=== PATIENT | male | born 1970 | race Caucasian/White ===

== ENCOUNTER 2019-12-11 09:53 | Inpatient (IN) | payer OTHER ==
[2019-12-11] MEDS ORDERED: PROMETHAZINE INJ 25 MG/ML AMP ONE (11:14)
[2019-12-11] MEDS ORDERED: MORPHINE 4 MG/ML SYR ONE (11:14)
[2019-12-11 11:27] LABS: Absolute Lymphocytes (CBC) 0.8 K/uL (0.7-4.9); Basophils % 0.4 % (0-1.3); Hematocrit 48.3 % (39.6-49.0); Lymphocytes % 4.2 % (15.3-44.8); MPV 8.3 fL (7.6-11.3); RBC Red Blood Cell Count 5.47 M/uL (4.33-5.43)
[2019-12-11 11:45] LABS: Albumin 4.1 g/dL (3.4-5.0); Bilirubin Total 0.6 mg/dL (0.2-1.0); Potassium 3.7 mmol/L (3.5-5.1); Protein, Total 8.3 g/dL (6.4-8.2)
[2019-12-11] MEDS ORDERED: VANCOMYCIN 2 GM in NA CHLORIDE 0.9% 500 ML IVPB ONE (12:00)
--- NOTE | 2019-12-11 12:03 | RAD REPORT ---
EXAM DESCRIPTION: US - Extremity Venous Uni Ltd - 12/11/2019 11:56 am CLINICAL HISTORY: SWELLING Leg swelling and edema. COMPARISON: EXT VENOUS UNI LTD dated 04/12/2014 FINDINGS: Left lower extremity venous system was interrogated with Doppler technique. Normal flow, c ompressibility and augmentation was noted. There is no DVT present. IMPRESSION: No evidence of left lower extremity deep venous thrombosis.
--- NOTE | 2019-12-11 12:10 | EDPHYS ---
Physician Documentation [facility] Name: Himanshu Caceres Age: 49 yrs Sex: Male : 1970 Arrival Date: 12/11/2019 Time: 09:56 Bed 6 Private MD: ED Physician Aroldo Woods HPI: 12/11 10:58 This 49 yrs old Male presents to ER via Ambulatory with complaints of Leg jmm Cellulitis. 10:58 The patient presents with swelling. The complaints affect the left calf. Onset: The jmm symptoms/episode began/occurred this morning. Modifying factors: The symptoms are alleviated by nothing. the symptoms are aggravated by movement. Associated signs and symptoms: Pertinent positives: fever, swelling. This is a 49 year old male with a history of htn, lymphedema that presents to the ED with complaints of left leg swelling and pain. Patient has had multiple episodes in the same area. . Historical: - Allergies: 10:42 PENICILLINS; iw - Home Meds: 10:42 atenolol 100 mg Oral tab 1 tab once daily [Active]; Lasix 20 mg Oral tab 1 tab once iw daily [Active]; - PMHx: 10:42 Hypertension; lymphedema; iw - PSHx: 10:42 Knee surgery; iw - Immunization history:: Adult Immunizations not up to date. - Coronavirus screen:: The patient has NOT traveled to [place], [place], or [place] in the past 14 days. Proceed with normal triage process as indicated. - Social history:: Smoking status: Patient/guardian denies using tobacco, the patient reports quitting approximately 20 years ago. - Ebola Screening: : Patient negative for fever greater than or equal to 101.5 degrees Fahrenheit, and additional compatible Ebola Virus Disease symptoms Patient denies exposure to infectious person Patient denies travel to an Ebola-affected area in the 21 days before illness onset No symptoms or risks identified at this time. ROS: 10:58 Constitutional: Negative for fever, chills, and weight loss, Cardiovascular: Negative jmm for chest pain, palpitations, and edema, Respiratory: Negative for shortness of breath, cough, wheezing, and pleuritic chest pain, Abdomen/GI: Negative for abdominal pain, nausea, vomiting, diarrhea, and constipation. 10:58 MS/extremity: Positive for erythema, swelling. 10:58 Skin: Positive for erythema. 10:58 All other systems are negative. Exam: 10:58 Constitutional: This is a well developed, well nourished patient who is awake, alert, jmm and in no acute distress. Head/Face: atraumatic. Eyes: EOMI, no conjunctival erythema appreciated ENT: Moist Mucus Membranes Neck: Trachea midline, Supple Chest/axilla: Normal chest wall appearance and motion. Cardiovascular: Regular rate and rhythm. No edema appreciated Respiratory: Normal respirations, no respiratory distress appreciated Abdomen/GI: Non distended, soft Back: Normal ROM 10:58 Musculoskeletal/extremity: FROM appreciated to the left lower leg, compartments are soft, full dorsalis pedis pulse, NVI. 10:58 Skin: erythema and induration appreciated to the left lower leg, TTP. 10:58 Neuro: Orientation: is normal, Mentation: is normal, Memory: is normal. 10:58 Psych: Behavior/mood is pleasant, cooperative. Vital Signs: 10:38 BP 160 / 78; Pulse 86; Resp 20; Temp 100.8; Pulse Ox 96% on R/A; Weight 157.49 kg; iw Height 6 ft. 1 in. (185.42 cm); Pain 10/10; 11:30 BP 115 / 51; Pulse 87; Resp 16; Pulse Ox 97% on R/A; tw2 12:38 BP 115 / 51; Pulse 90; Resp 17; Pulse Ox 98% on R/A; Pain 10/10; tw2 13:17 Temp 99.3(O); tw2 13:18 BP 119 / 60; Pulse 86; Resp 17; Pulse Ox 95% on R/A; tw2 14:00 BP 96 / 42; Pulse 87; Resp 18; Pulse Ox 95% ; sv 10:38 Body Mass Index 45.81 (157.49 kg, 185.42 cm) iw MDM: 10:51 Patient medically screened. [facility] 12:07 Data reviewed: vital signs, nurses notes. Counseling: I had a detailed discussion with lui the patient and/or guardian regarding: the historical points, exam findings, and any diagnostic results supporting the discharge/admit diagnosis, lab results, the need for further work-up and treatment in the hospital. ED course: I discussed the patient with Dr. Rooney whom accepted admission. . 12/11 10:52 Order name: CBC with Diff; Complete Time: 12:31 [facility] 12/11 10:52 Order name: CMP; Complete Time: 11:45 [facility] 12/11 10:52 Order name: Lactate; Complete Time: 11:45 [facility] 12/11 10:52 Order name: Procalcitonin; Complete Time: 12:16 [facility] 12/11 10:52 Order name: Blood Culture Adult (2) [facility] 12/11 12:24 Order name: Manual Differential; Complete Time: 12:31 [facility] 12/11 11:24 Order name: US Extremity Venous Unilateral Ltd; Complete Time: 12:16 [facility] 12/11 10:52 Order name: Saline Lock; Complete Time: 11:11 [facility] Administered Medications: 11:20 Drug: Promethazine 12.5 mg Route: IVP; Site: right antecubital; tw2 12:35 Follow up: Response: No adverse reaction tw2 11:23 Drug: morphine 4 mg Route: IVP; Site: right antecubital; tw2 12:35 Follow up: Response: No adverse reaction; Pain is unchanged, physician notified; RASS: tw2 Alert and Calm (0) 12:07 CANCELLED (30 0ml/kg used): NS 0.9% 1000 ml IV at 1 bolus Per protocol; 1000 mL bolus [facility] 12:30 Drug: vancoMYCIN 1 grams Route: IVPB; Infused Over: 2 hrs; Site: right antecubital; tw2 13:50 Follow up: IV Status: Infusion continued upon admission tw2 12:30 Drug: NS 0.9% (30 ml/kg) 30 ml/kg Route: IV; Rate: bolus; Site: right antecubital; tw2 13:50 Follow up: IV Status: Infusion continued upon admission; IV Intake: 2000ml tw2 12:30 Drug: Tylenol 1000 mg Route: PO; tw2 13:50 Follow up: Response: No adverse reaction; Temperature is decreased tw2 13:13 Drug: [place] 10 mg-325 mg 1 tabs Route: PO; tw2 13:53 Follow up: Response: No adverse reaction; Pain is decreased; RASS: Alert and Calm (0) tw2 Disposition: 18:17 Co-signature as Attending Physician, Aroldo Woods MD. ma2 Disposition: 12/11/19 12:08 Hospitalization ordered by Shruthi Rooney for Inpatient Admission. Preliminary diagnosis are Cellulitis of left lower limb, Sepsis. - Bed requested for Telemetry/MedSurg (Inpatient). - Status is Inpatient Admission. tw2 - Condition is Stable. - Problem is an acute exacerbation. - Symptoms have improved. Signatures: Dispatcher [employer] EDMS Ej Borja PA PA Liya Vyas, RN RN iw Perla Mckenzie RN RN tw2 Joshua Kimbrough RN RN ja1 Aroldo Woods MD MD tx2 Corrections: (The following items were deleted from the chart) 12:07 12:01 NS 0.9% 1000 ml IV at 1 bolus Per protocol; 1000 mL bolus ordered. [facility] 13:38 12:08 Hospitalization Ordered by Shruthi Rooney MD for Inpatient Admission. Preliminary ja1 diagnosis is Cellulitis of left lower limb; Sepsis. Bed requested for Telemetry/MedSurg (Inpatient). Status is Inpatient Admission. Condition is Stable. Problem is an acute exacerbation. Symptoms have improved. [facility] 14:19 13:38 12/11/2019 12:08 Hospitalization Ordered by Shruthi Rooney MD for Inpatient tw2 Admission. Preliminary diagnosis is Cellulitis of left lower limb; Sepsis. Bed requested for Telemetry/MedSurg (Inpatient). Status is Inpatient Admission. Condition is Stable. Problem is an acute exacerbation. Symptoms have improved. ja1
--- NOTE | 2019-12-11 12:10 | ER ---
Nurse's Notes [facility] Name: Himanshu Caceres Age: 49 yrs Sex: Male : 1970 Arrival Date: 12/11/2019 Time: 09:56 Bed 6 Private MD: Diagnosis: Cellulitis of left lower limb;Sepsis Presentation: 12/11 10:38 Presenting complaint: Patient states: cellulitis to left leg, flared up this morning , iw has hx of cellulitis and lymphedema in leg. Transition of care: patient was not received from another setting of care. Onset of symptoms was December 10, 2019. Risk Assessment: Do you want to hurt yourself or someone else? Patient reports no desire to harm self or others. Initial Sepsis Screen: Does the patient meet any 2 criteria? No. Patient's initial sepsis screen is negative. Does the patient have a suspected source of infection? No. Patient's initial sepsis screen is negative. Care prior to arrival: None. 10:38 Method Of Arrival: Ambulatory iw 10:38 Acuity: CLAUDETTE 3 iw Historical: - Allergies: 10:42 PENICILLINS; iw - Home Meds: 10:42 atenolol 100 mg Oral tab 1 tab once daily [Active]; Lasix 20 mg Oral tab 1 tab once iw daily [Active]; - PMHx: 10:42 Hypertension; lymphedema; iw - PSHx: 10:42 Knee surgery; iw - Immunization history:: Adult Immunizations not up to date. - Coronavirus screen:: The patient has NOT traveled to [place], [place], or [place] in the past 14 days. Proceed with normal triage process as indicated. - Social history:: Smoking status: Patient/guardian denies using tobacco, the patient reports quitting approximately 20 years ago. - Ebola Screening: : Patient negative for fever greater than or equal to 101.5 degrees Fahrenheit, and additional compatible Ebola Virus Disease symptoms Patient denies exposure to infectious person Patient denies travel to an Ebola-affected area in the 21 days before illness onset No symptoms or risks identified at this time. Screenin:06 Abuse screen: Denies threats or abuse. Nutritional screening: No deficits noted. tw2 Tuberculosis screening: No symptoms or risk factors identified. Fall Risk None identified. Assessment: 11:00 Reassessment: Patient appears in no apparent distress at this time. Patient and/or tw2 family updated on plan of care and expected duration. Pain level reassessed. Patient is alert, oriented x 3, equal unlabored respirations, skin warm/dry/pink. Patient states symptoms have not improved. General: Appears uncomfortable, obese, Behavior is calm, cooperative, agitated. Pain: Complains of pain in left calf. Neuro: Level of Consciousness is awake, alert, obeys commands, Oriented to person, place, time, situation. Cardiovascular: Heart tones S1 S2 Patient's skin is warm and dry. Respiratory: Airway is patent Respiratory effort is even, unlabored, Respiratory pattern is regular, symmetrical, Breath sounds are clear bilaterally. GI: No signs and/or symptoms were reported involving the gastrointestinal system. Abdomen is round obese, Bowel sounds present X 4 quads. : No signs and/or symptoms were reported regarding the genitourinary system. EENT: No signs and/or symptoms were reported regarding the EENT system. Derm: redness and swelling noted to LEFT calf, right calf is swollen as well. pt reports increased pain and swelling. Musculoskeletal: Range of motion: intact in all extremities. 11:44 Reassessment: US at the bedside. sv 12:30 Reassessment: Patient appears in no apparent distress at this time. Patient and/or tw2 family updated on plan of care and expected duration. Pain level reassessed. Patient is alert, oriented x 3, equal unlabored respirations, skin warm/dry/pink. 13:19 Reassessment: Patient appears in no apparent distress at this time. Patient and/or tw2 family updated on plan of care and expected duration. Pain level reassessed. Patient is alert, oriented x 3, equal unlabored respirations, skin warm/dry/pink. Vital Signs: 10:38 BP 160 / 78; Pulse 86; Resp 20; Temp 100.8; Pulse Ox 96% on R/A; Weight 157.49 kg; iw Height 6 ft. 1 in. (185.42 cm); Pain 10/10; 11:30 BP 115 / 51; Pulse 87; Resp 16; Pulse Ox 97% on R/A; tw2 12:38 BP 115 / 51; Pulse 90; Resp 17; Pulse Ox 98% on R/A; Pain 10/10; tw2 13:17 Temp 99.3(O); tw2 13:18 BP 119 / 60; Pulse 86; Resp 17; Pulse Ox 95% on R/A; tw2 14:00 BP 96 / 42; Pulse 87; Resp 18; Pulse Ox 95% ; sv 10:38 Body Mass Index 45.81 (157.49 kg, 185.42 cm) iw ED Course: 09:56 Patient arrived in ED. as 10:38 Arm band placed on. iw 10:40 Triage completed. iw 10:45 Ej Borja PA is PHCP. jmm 10:45 Aroldo Woods MD is Attending Physician. jmm 10:45 Bed in low position. Call light in reach. brush hand on. Pulse ox on. NIBP on. tw2 10:50 First set of blood cultures drawn by me. jb1 10:59 Perla Mckenzie RN is Primary Nurse. tw2 11:05 Second set of blood cultures drawn by me. jb1 11:10 Initial lab(s) drawn, by ky, sent to lab. Inserted saline lock: 22 gauge in right jb1 antecubital area, using aseptic technique. Blood collected. 11:57 Extremity Venous Unilateral Ltd In Process Unspecified. EDMS 12:08 Shruthi Rooney MD is Hospitalizing Provider. [facility] 13:52 No provider procedures requiring assistance completed. Patient admitted, IV remains in sv place. intact. Administered Medications: 11:20 Drug: Promethazine 12.5 mg Route: IVP; Site: right antecubital; tw2 12:35 Follow up: Response: No adverse reaction tw2 11:23 Drug: morphine 4 mg Route: IVP; Site: right antecubital; tw2 12:35 Follow up: Response: No adverse reaction; Pain is unchanged, physician notified; RASS: tw2 Alert and Calm (0) 12:07 CANCELLED (30 0ml/kg used): NS 0.9% 1000 ml IV at 1 bolus Per protocol; 1000 mL bolus [facility] 12:30 Drug: vancoMYCIN 1 grams Route: IVPB; Infused Over: 2 hrs; Site: right antecubital; tw2 13:50 Follow up: IV Status: Infusion continued upon admission tw2 12:30 Drug: NS 0.9% (30 ml/kg) 30 ml/kg Route: IV; Rate: bolus; Site: right antecubital; tw2 13:50 Follow up: IV Status: Infusion continued upon admission; IV Intake: 2000ml tw2 12:30 Drug: Tylenol 1000 mg Route: PO; tw2 13:50 Follow up: Response: No adverse reaction; Temperature is decreased tw2 13:13 Drug: [place] 10 mg-325 mg 1 tabs Route: PO; tw2 13:53 Follow up: Response: No adverse reaction; Pain is decreased; RASS: Alert and Calm (0) tw2 Intake: 13:50 IV: 2000ml; Total: 2000ml. tw2 Outcome: 12:08 Decision to Hospitalize by Provider. lui 13:53 Admitted to Med/surg accompanied by tech, via wheelchair, room 228, with chart, Report sv called to MONIQUE RN 13:53 Condition: stable 13:53 Instructed on the need for admit. 14:19 Patient left the ED. tw2 Signatures: Dispatcher [employer] EDMS Henry Mejias Stephanie, RN RN Ej Borja PA PA jmm Martinez, Amelia as Liya Castellanos, ALDAIR QUINTEROS Perla Mckenzie RN RN tw2 Corrections: (The following items were deleted from the chart) 10:42 10:38 BP 160 / 78; Pulse 86bpm; Resp 20bpm; Pulse Ox 96% RA; Temp 100.8F; iw iw
[2019-12-11 12:23] LABS: Blood Morphology Comment NOT SEEN (NOT SEEN); Platelet Estimate ADEQ
[2019-12-11] MEDS ORDERED: ACETAMINOPHEN 500 MG TAB ONE (12:28)
[2019-12-11] MEDS ORDERED: NA CHLORIDE 0.9% 2,000 ML ONE (12:28)
[2019-12-11] MEDS ORDERED: HYDROCODONE/APAP 10/325 TAB ONE (13:06)
[2019-12-11] MEDS ORDERED: ACETAMINOPHEN 500 MG TAB PO PRN (14:30)
[2019-12-11] MEDS ORDERED: VANCOMYCIN/NS 1 gm 1 GM/250 ML BAG IVPB SCH (14:30)
[2019-12-11] MEDS ORDERED: ONDANSETRON 4 MG/2 ML VIAL IV PRN (14:30)
[2019-12-11] MEDS ORDERED: MORPHINE 4 MG/ML SYR IV PRN (14:30)
[2019-12-11 14:43] VITALS: BMI 45.6
[2019-12-11] MEDS: NA CHLORIDE 0.9% 1,000 ML IV SCH (14:53)
[2019-12-11] MEDS ORDERED: VANCOMYCIN 2 GM in NA CHLORIDE 0.9% 500 ML IV SCH (15:00)
[2019-12-11 15:22] LABS: Urine Appearance CLEAR; Urine Bilirubin NEGATIVE (NEG); Urine Blood NEGATIVE (NEG); Urine Color YELLOW; Urine Glucose NEGATIVE (NEG); Urine Protein NEGATIVE (NEG); Urine Specific Gravity 1.025 (1.005-1.030); Urine Urobilinogen 0.2 mg/dL (0.2-1.0)
[2019-12-11 15:24] LABS: Urine Microscopic Reflex NO UMIC
[2019-12-11] MEDS: INSULIN -REGULAR HUMAN 50 UNIT/0.5 ML ML SQ SCH ×2 (15:55→20:16)
[2019-12-11] MEDS: CEFEPIME/SWI 2gm 2 GM/20 ML SYR IV SCH (19:37)
[2019-12-11] MEDS ORDERED: CEFEPIME 2 GM VIAL IV SCH (21:00)
[2019-12-11] MEDS: VANCOMYCIN 2 GM in NA CHLORIDE 0.9% 500 ML IV SCH (23:36)
[2019-12-12] MEDS: NA CHLORIDE 0.9% 1,000 ML IV SCH ×3 (00:30→21:05)
--- NOTE | 2019-12-12 03:11 | HP ---
Date of Admission: 12/11/2019 Primary Care Physician: Dr. Bautista. Chief Complaint: Left leg cellulitis, pain, swelling. History Of Present Illness: Patient is a 49-year-old male with past medical history of diabetes; hypertension; lower extremity edema, which is chronic, of the left leg after injury; and history of DVT. He was in his usual state of health until day of admission when the patient had sudden worsening of his lower extremity edema, redness, erythema, pain to touch. Patient also reports some chills. No fever. Patient's symptoms are constant, moderate, progressively worsening. Came in for further evaluation. His workup revealed a white count of 20,000. He was febrile, temperature of 100.8. Lactate was elevated at 2.4. Patient was found to be septic. He was started on sepsis bolus and referred for admission. When seen in the ER, he was awake, alert, oriented x3, in some mild distress, and received dose of vancomycin. Past Medical History: Diabetes, hypertension, peripheral edema of the left lower extremity, and DVT of the left lower extremity. Past Surgical History: Knee surgery. Allergies: PENICILLIN. Medications: List reviewed. Social History: Patient denies any tobacco use, alcohol use, or illicit drug use. Patient did quit smoking 20 years ago. Family History: Diabetes and colon cancer run in the family. Review of Systems: 10-point systems reviewed, negative except as per HPI. Physical Examination: Vital Signs: Temperature 100.8, heart rate 86, blood pressure 160/78, respirations 20, O2 96% on room air. General: Awake, alert, oriented x3, morbidly obese male, ill appearing, in some mild distress. HEENT: Normocephalic, atraumatic. PERRLA. EOMI. Moist mucous membranes. Oropharynx is clear. Conjunctivae are anicteric. Neck: Supple. No JVD. Trachea midline. CV: S1, S2. Regular rate and rhythm. Peripheral pulses present. Respiratory: Moving air well bilaterally. No wheezing or stridor. No use of accessory muscles. Gastrointestinal: Abdomen is soft, nontender, nondistended. Positive bowel sounds. Extremities: No clubbing or cyanosis. Patient has lower extremity edema, left greater than right. No calf tenderness. Neuro: Cranial nerves 2 through 12 intact grossly. No focal neurological deficits. Speech is normal. Skin: Left lower extremity erythema, tenderness to palpation, warm to touch. Psych: Mood is okay. Affect is full. Insight and judgment are good. Laboratory Data: UA is negative. Sodium 137, potassium 3.7, chloride 104, CO2 24, BUN 19, creatinine 1.0, glucose 108, lactate 2.4, calcium 9.2. Procalcitonin less than 0.05. WBC 20.2, H and H 16 and 48.3, platelets 234, neutrophils 91%. Doppler sonogram shows no evidence of left lower extremity DVT. Assessment: 49-year-old male with: 1. Left lower extremity cellulitis. We will start on broad spectrum IV antibiotics and obtain blood cultures. 2. Sepsis. Patient has elevated temperature. White count 20K, lactate elevated at 2.4. We will start on sepsis bundle. Patient received 30 mL/kg bolus. Cultures have been obtained secondary to lower extremity cellulitis. 3. Diabetes mellitus type 2. We will start him on sliding scale insulin and monitor blood glucose levels. 4. Essential hypertension, stable. 5. Chronic lymphedema with acute worsening. 6. Morbid obesity, body mass index greater than 40. 7. Deep venous thrombosis prophylaxis. Lovenox. Plan: Admit patient to Med-Surg, place as inpatient. Length of stay greater than 2 midnights. /ARMANDO Voice ID: [id number] MTDD
[2019-12-12 04:50] LABS: Absolute Lymphocytes (CBC) 1.4 K/uL (0.7-4.9); Basophils % 0.2 % (0-1.3); Hematocrit 40.8 % (39.6-49.0); Lymphocytes % 11.1 % (15.3-44.8); MPV 8.4 fL (7.6-11.3)
[2019-12-12 04:57] LABS: BUN Blood Urea Nitrogen 14 mg/dL (7-18); Bicarbonate 26 mmol/L (21-32); Glucose Level 98 mg/dL (74-106); Potassium 3.6 mmol/L (3.5-5.1); Sodium Level 138 mmol/L (136-145)
[2019-12-12] MEDS: INSULIN -REGULAR HUMAN 50 UNIT/0.5 ML ML SQ SCH ×4 (07:30→21:00)
[2019-12-12] MEDS ORDERED: ATENOLOL PO SCH (09:00)
[2019-12-12] MEDS: atenoloL 50 MG TAB PO SCH ×2 (09:00→09:06)
[2019-12-12] MEDS ORDERED: FUROSEMIDE 20 MG TABLET PO SCH (09:00)
[2019-12-12] MEDS ORDERED: ZOLPIDEM TARTRATE 10 MG TABLET PO PRN (09:02)
[2019-12-12] MEDS: CEFEPIME/SWI 2gm 2 GM/20 ML SYR IV SCH ×2 (09:04→20:50)
[2019-12-12] MEDS: ASPIRIN EC 81 MG TAB PO SCH (09:05)
[2019-12-12] MEDS: VANCOMYCIN 2 GM in NA CHLORIDE 0.9% 500 ML IV SCH (12:02)
--- NOTE | 2019-12-12 16:08 | PN ---
Date of Progress Note: 12/12/2019 Subjective: Patient is seen and examined. Chart reviewed and case discussed with RN. Patient state s his pain is slightly better. His erythema is still present along with swelling. Medications: List reviewed. Physical Examination: Vital Signs: Temperature 97.7, heart rate 63, blood pressure 130/78, respirations 20, O2 of 96% on r oom air. General: Awake, alert, oriented x3. Morbidly obese male, in some mild distress. CV: S1, S2. Regular rate and rhythm. Peripheral pulses present. Respiratory: Moving air well bilaterally. Abdomen: Soft, nontender, nondistended. Positive bowel sounds. Extremities: No clubbing, cyanosis. Patient has edema of the left lower extremity. Neurologic: Nonfocal. Patient has erythema of the left lower extremity swelling, warm to touch. No tenderness to palpation. Erythema is slightly improved from previous. Laboratory Data: Sodium 138, potassium 3.6, chloride 106, CO2 of 26, BUN 14, creatinine 0.87, glucos e 98, calcium 8. WBC 12.8, H and H 13.6 and 40.8, platelets 176, neutrophils 80%, no bands. Blood c ultures, no growth to date. Assessment: 49-year-old male with: 1.Sepsis secondary to left lower extremity cellulitis. White blood cell count is improving. Cultur es are negative to date. Lactate is improved. Continue with IV fluids and IV antibiotics. 2.Left lower extremity cellulitis. We will continue with broad-spectrum IV antibiotics and follow u p on cultures, improving. 3.Diabetes mellitus type 2. Continue sliding scale insulin. Monitor blood glucose levels. 4.Essential hypertension, stable. Continue hydrochlorothiazide. 5.Chronic lymphedema with acute worsening. Patient recommended to go to [facility]ymp[facility]ema Clinic. 6.Morbid obesity. BMI greater than 40. 7.Deep venous thrombosis prophylaxis with Lovenox. Plan: Likely discharge in the next 24 to 48 hours depending on clinical response. /ARMANDO Voice ID: [id number] Report ID: [id number]
[2019-12-12] MEDS ORDERED: atenoloL 50 MG TAB PO SCH (21:00)
[2019-12-13] MEDS: VANCOMYCIN 2 GM in NA CHLORIDE 0.9% 500 ML IV SCH (00:34)
[2019-12-13] MEDS: NA CHLORIDE 0.9% 1,000 ML IV SCH (02:20)
[2019-12-13 05:38] LABS: Absolute Lymphocytes (CBC) 1.7 K/uL (0.7-4.9); Basophils % 0.2 % (0-1.3); Hematocrit 41.6 % (39.6-49.0); Lymphocytes % 17.4 % (15.3-44.8); MPV 8.2 fL (7.6-11.3); RBC Red Blood Cell Count 4.71 M/uL (4.33-5.43)
[2019-12-13 05:50] LABS: BUN Blood Urea Nitrogen 12 mg/dL (7-18); Bicarbonate 25 mmol/L (21-32); Glucose Level 104 mg/dL (74-106); Potassium 3.7 mmol/L (3.5-5.1); Sodium Level 138 mmol/L (136-145)
[2019-12-13] MEDS: INSULIN -REGULAR HUMAN 50 UNIT/0.5 ML ML SQ SCH (07:30)
[2019-12-13] MEDS: ASPIRIN EC 81 MG TAB PO SCH (08:26)
[2019-12-13] MEDS: CEFEPIME/SWI 2gm 2 GM/20 ML SYR IV SCH (08:27)
[2019-12-13 08:31] VITALS: BP 133/60
[2019-12-13] MEDS ORDERED: hydroCHLOROthiazide 25 MG TAB PO SCH (09:00)
[2019-12-13 09:21] VITALS: TEMP 97.9
[2019-12-13 09:48] VITALS: O2SAT 98
--- NOTE | 2019-12-14 05:37 | DS ---
Date of Discharge: 12/13/2019 Admitting Diagnoses: 1.Left lower extremity cellulitis. 2.Sepsis. 3.Diabetes mellitus type 2 with hyperglycemia non-insulin requiring. 4.Essential hypertension. 5.Chronic lymphedema with acute worsening. 6.Morbid obesity. Discharge Diagnoses: 1.Sepsis, resolved secondary to cellulitis. 2.Left lower extremity cellulitis, improving, cultures negative. 3.Diabetes mellitus type 2 with hyperglycemia, insulin requiring. 4.Essential hypertension, stable. 5.Chronic lymphedema with acute worsening. 6.Morbid obesity, body mass index greater than 40. Hospital Course: Patient is a 49-year-old male with past medical history of diabetes [id number] uiring, hypertension, lower extremity edema which is chronic, comes in with cellulitis of the lower e xtremity. Patient clarified that he does not have history of DVT, he in fact had injury to his left lower extremity and developed necrosis of his skin and required surgical debridement and since has wong d chronic lymphedema with multiple episodes of cellulitis. Patient came in with a white count of ove r 20,000. His temperature was 100.8. Lactate was elevated. He was found to be septic. He was star ana maría on IV fluids, given sepsis bolus. His blood cultures were obtained and remained negative to date . He was started on broad-spectrum IV antibiotics. His white blood cell count improved and normaliz ed. His cultures remained negative. Doppler sonogram was done, which was negative for any acute DVT in the left lower extremity. Patient did have some elevated temperature of 100.4, but has been afeb rile for over 24 hours. His erythema improved significantly. He was then cleared for discharge and was sent home in a stable condition. Medications: As per medication reconciliation list. Followup: Follow up with primary care physician in 2-3 days, establish care at [place]. Return to ER for worsening condition. Diet: Heart healthy. Activity: As tolerated. Keep left lower extremity elevated as much as possible. Physical Examination: General: Awake, alert, oriented x3. No acute distress. Morbidly obese male. CV: S1-S2. Respiratory: Moving air well bilaterally. Abdomen: Abdomen is soft, nontender, nondistended. Positive bowel sounds. Extremities: No clubbing, cyanosis. Left lower extremity edema. Skin: Minimal erythema of the left lower extremity. No warmth to touch. Neurologic: Nonfocal. Total time spent discharging patient was 35 minutes. /ARMANDO Voice ID: [id number] Report ID: [id number]
== END 2019-12-13 10:38 | disposition home or self-care (01) | DRG 872 ==
LOC: ER 09:53 → ERHOLD 12:18 → 2ND 14:14
PROVIDERS: ADMIT Family Medicine; ATTEND Family Medicine
DX: A41.9 Sepsis, unspecified organism (principal); L03.116 Cellulitis of left lower limb; Z68.42 Body mass index [BMI] 45.0-49.9, adult; E11.65 Type 2 diabetes mellitus with hyperglycemia; I10 Essential (primary) hypertension; R60.0 Localized edema; E66.01 Morbid (severe) obesity due to excess calories
CPT/HCPCS: 36415; 80048; 80053; 81003; 82947; 83605; 84145; 85025; 87040; 93971; 94760; 96365; 96368; 96375; 99285; J0692; J2550; J7030; J7040